=== PATIENT | female | born 1995 | race Two or more races ===

== ENCOUNTER 2016-05-26 21:47 | Emergency (ER) | payer SELFPAY ==
[~2016-05-26] VITALS: Ht 160 cm; Wt 75.5 kg
[2016-05-26 22:21] LABS: HEMOGLOBIN 12.4 g/dL (11.7-16.4)
[2016-05-26 23:50] VITALS: BP 97/61
== END 2016-05-27 00:28 | disposition home or self-care (01) ==
LOC: ED 05-27 00:05
DX: O46.91 Antepartum hemorrhage, unspecified, first trimester (principal); Z3A.01 Less than 8 weeks gestation of pregnancy
CPT/HCPCS: 36415; 51701; 76801; 81003; 84702; 85025; 86901; P9612

== ENCOUNTER 2016-06-27 20:06 | Emergency (ER) | payer SELFPAY ==
[~2016-06-27] VITALS: Ht 157.5 cm; Wt 72.3 kg
[2016-06-27 20:08] VITALS: BP 121/76
[2016-06-27] MEDS ORDERED: ACETAMINOPHEN 325 MG TABLET ONE (20:52)
[2016-06-27] MEDS ORDERED: ACETAMINOPHEN 325 MG TABLET PO ONE (21:00)
== END 2016-06-27 21:26 | disposition home or self-care (01) ==
LOC: ED 21:20
DX: O26.891 Other specified pregnancy related conditions, first trimester (principal); J00 Acute nasopharyngitis [common cold]; J02.8 Acute pharyngitis due to other specified organisms; Z3A.10 10 weeks gestation of pregnancy
CPT/HCPCS: 87081; 87880; 99284

== ENCOUNTER 2016-07-09 17:50 | Emergency (ER) | payer MEDICAID ==
[~2016-07-09] VITALS: Ht 157.5 cm; Wt 72.0 kg
[2016-07-09 17:53] VITALS: BP 114/73
[2016-07-09] MEDS ORDERED: DIPHENHYDRAMINE 50 MG CAPSULE ONE (18:10)
[2016-07-09] MEDS ORDERED: DIPHENHYDRAMINE 25 MG CAPSULE PO ONE (18:30)
== END 2016-07-09 19:12 | disposition home or self-care (01) ==
LOC: ED 19:07
DX: T78.40XA Allergy, unspecified, initial encounter (principal); H10.32 Unspecified acute conjunctivitis, left eye; X58.XXXA Exposure to other specified factors, initial encounter
CPT/HCPCS: 99282; Q0163

== ENCOUNTER 2016-08-05 16:40 | Emergency (ER) | payer MEDICAID ==
[~2016-08-05] VITALS: Ht 160 cm; Wt 72.8 kg
[2016-08-05] MEDS ORDERED: ALBUTEROL/IPRATROPIUM 2.5MG/0.5MG, 3 ML NPPB ONE (17:30)
[2016-08-05] MEDS ORDERED: ALBUTEROL/IPRATROPIUM 2.5MG/0.5MG, 3 ML ONE (19:56)
[2016-08-05 20:17] VITALS: BP 111/77
== END 2016-08-05 20:23 | disposition home or self-care (01) ==
LOC: ED 19:19
DX: O26.892 Other specified pregnancy related conditions, second trimester (principal); Z3A.15 15 weeks gestation of pregnancy; J20.9 Acute bronchitis, unspecified; R07.89 Other chest pain; R06.00 Dyspnea, unspecified
CPT/HCPCS: 71010; 93005; 94640; 99284; J7620

== ENCOUNTER 2016-08-22 12:37 | Emergency (ER) | payer MEDICAID ==
[~2016-08-22] VITALS: Ht 160 cm; Wt 73.4 kg
[2016-08-22] MEDS ORDERED: SODIUM CHLORIDE FLUSH 10ML SYR IVF ONE (13:30)
[2016-08-22] MEDS ORDERED: SODIUM CHLORIDE 0.9% 1,000ML IVBOLUS ONE (13:30)
[2016-08-22 13:49] LABS: BLOOD UREA NITROGEN 5 mg/dL (7-18)
[2016-08-22 15:04] VITALS: BP 127/76
== END 2016-08-22 15:55 | disposition home or self-care (01) ==
LOC: ED 13:49
DX: O20.0 Threatened abortion (principal); Z3A.18 18 weeks gestation of pregnancy
CPT/HCPCS: 36415; 76815; 80048; 82040; 84702; 85025; 86901; 99285; J7030

== ENCOUNTER 2016-08-31 20:57 | Emergency (ER) | payer MEDICAID ==
[~2016-08-31] VITALS: Ht 160 cm; Wt 75.2 kg
[2016-09-01 00:18] VITALS: BP 111/74
== END 2016-09-01 00:19 | disposition home or self-care (01) ==
LOC: ED 21:37
DX: O20.0 Threatened abortion (principal); O23.12 Infections of bladder in pregnancy, second trimester
CPT/HCPCS: 76805; 81001; 87086; 99285

== ENCOUNTER 2016-09-10 09:11 | Emergency (ER) | payer MEDICAID ==
[~2016-09-10] VITALS: Ht 160 cm; Wt 75.0 kg
[2016-09-10 09:16] VITALS: BP 102/64
== END 2016-09-10 10:46 | disposition home or self-care (01) ==
LOC: ED 10:15
DX: O26.892 Other specified pregnancy related conditions, second trimester (principal); R10.9 Unspecified abdominal pain; Z3A.21 21 weeks gestation of pregnancy
CPT/HCPCS: 99281

== ENCOUNTER 2016-09-20 23:39 | Outpatient (CLI) | payer MEDICAID ==
[~2016-09-20] VITALS: Ht 160 cm; Wt 73.0 kg
[2016-09-21 00:05] VITALS: BP 122/75
== END 2016-09-21 00:19 | disposition home or self-care (01) ==
LOC: LDOP 23:39
PROVIDERS: ATTEND Student in an Organized Health Care Education/Training Program
DX: O46.8X2 Other antepartum hemorrhage, second trimester (principal); O26.852 Spotting complicating pregnancy, second trimester; Z3A.22 22 weeks gestation of pregnancy
CPT/HCPCS: 59025; 99201; G0463

== ENCOUNTER 2016-10-30 15:52 | Observation (INO) | payer MEDICAID ==
[~2016-10-30] VITALS: Ht 157.5 cm; Wt 80.0 kg
[2016-10-30 16:15] VITALS: BP 116/56
[2016-10-30] MEDS ORDERED: PREN1TAB60 PO (16:27)
[2016-10-30 16:39] LABS: DAU SCREEN DISCLAIMER
[2016-10-30] MEDS ORDERED: LACTATED RINGERS 1,000 ML IVBOLUS ONE (17:00)
[2016-10-30] MEDS ORDERED: ONDANSETRON 2MG/ML, 2ML IVPush ONE (17:00)
[2016-10-30] MEDS ORDERED: LACTATED RINGERS 1,000 ML IV SCH (17:00)
[2016-10-30 17:08] LABS: HEMATOCRIT 32.6 % (34.6-47.8); HEMOGLOBIN 10.9 g/dL (11.7-16.4)
[2016-10-30] MEDS ORDERED: ONDANSETRON 2MG/ML, 2ML ONE (17:12)
== END 2016-10-30 19:10 | disposition home or self-care (01) ==
LOC: LDOP 15:52 → LDIP 17:46
PROVIDERS: ADMIT Student in an Organized Health Care Education/Training Program; ATTEND Student in an Organized Health Care Education/Training Program
DX: O36.8130 Decreased fetal movements, third trimester, not applicable or unspecified (principal); O26.893 Other specified pregnancy related conditions, third trimester; O26.853 Spotting complicating pregnancy, third trimester; O62.9 Abnormality of forces of labor, unspecified; O99.513 Diseases of the respiratory system complicating pregnancy, third trimester; R42 Dizziness and giddiness; J45.909 Unspecified asthma, uncomplicated; Z3A.28 28 weeks gestation of pregnancy
CPT/HCPCS: 36415; 59025; 80307; 81001; 85025; 87086; 96361; 96374; G0378; J2405; J7120; 96360